=== PATIENT | female | born 1940 | race Caucasian/White ===

== ENCOUNTER → 2016-08-28 | Outpatient (CLI) | payer MEDICARE ==
[~2016-08-28] MED LIST: METF500T PO
[2016-08-28 12:02] LABS: AUTOMATED NEUTROPHIL # 4.8 TH/MM3 (1.8-7.7); BASOPHIL # 0.1 TH/MM3 (0-0.2); BASOPHIL % 1.1 % (0.0-2.0); EOSINOPHIL # 0.2 TH/MM3 (0-0.4); EOSINOPHIL % 2.8 % (0.0-4.0); HEMATOCRIT 42.7 % (35.0-46.0); HEMO FLAGS DIFF FINAL; LYMPH % 27.3 % (9.0-44.0); LYMPHOCYTE # 2.4 TH/MM3 (1.0-4.8); MEAN CELL VOLUME 96.5 FL (80.0-100.0); MEAN CORPUSCULAR HEMOGLOBIN 32.3 PG (27.0-34.0); MEAN CORPUSCULAR HGB CONC 33.4 % (32.0-36.0); MONO % 13.3 % (0.0-8.0); NEUT % 55.5 % (16.0-70.0); PLATELET COUNT 147 TH/MM3 (150-450); RED BLOOD COUNT 4.42 MIL/MM3 (4.00-5.30); RED CELL DISTRIBUTION WIDTH 16.1 % (11.6-17.2); WHITE BLOOD COUNT 8.6 TH/MM3 (4.0-11.0)
[2016-08-28 12:21] LABS: BACTERIA, URINE MANY /hpf; BLOOD, URINE TRACE (NEG); GLUCOSE,URINE NEG (NEG); GRANULAR CAST, URINE 2 /lpf; KETONE, URINE NEG (NEG); MUCUS URINE FEW /lpf (OCC); PH, URINE 6.5 (5.0-8.5); SQUAMOUS EPITHELIAL CELL URINE 3 /hpf (0-5); URINE COLOR YELLOW (YELLW/STRAW)
[2016-08-28 12:28] LABS: NITRITE,URINE POS (NEG)
[2016-08-28 12:35] LABS: BICARBONATE 25.2 MEQ/L (21.0-32.0)
[2016-08-28 12:36] LABS: POTASSIUM 5.6 MEQ/L (3.5-5.1)
== END ==
LOC: CPRE 10:34
PROVIDERS: ATTEND Obstetrics & Gynecology
DX: Z01.812 Encounter for preprocedural laboratory examination (principal); N92.0 Excessive and frequent menstruation with regular cycle
CPT/HCPCS: 36415; 80048; 81001; 85025

== ENCOUNTER 2016-09-05 05:47 | Observation (INO) | payer MEDICARE ==
[~2016-09-05] VITALS: Ht 162.6 cm; Wt 101.0 kg
[2016-09-05] MEDS ORDERED: METOPROLOL TARTRATE 25 MG TAB PO PRN (06:45)
[2016-09-05] MEDS ORDERED: POVIDONE IODINE 5% (ANTISEPSIS KIT) 4 APPLICATIONS EACH NARE PRN (06:45)
[2016-09-05] MEDS ORDERED: LACTATED RINGER'S 1000 ML IV PRN (06:45)
[2016-09-05] MEDS ORDERED: INSULIN HUMAN REGULAR 1,000 UNITS/10 ML VIAL SQ PRN (06:45)
[2016-09-05] MEDS ORDERED: APREPITANT 40 MG CAP PO SCH (06:45)
[2016-09-05] MEDS ORDERED: SODIUM CHLORID 0.9% 500 ML IV PRN (06:45)
[2016-09-05] MEDS ORDERED: ceFAZolin 2 GM PREMIX 50 ML IV SCH (06:45)
[2016-09-05] MEDS ORDERED: CHLORHEXIDINE GLUCONATE 2 % 1 PACK (2 CLOTHS) TOPICAL PRN (06:45)
[2016-09-05 07:00] VITALS: BP 163/73; PULSE 74; RESP 18; TEMP 99; O2SAT 98
[2016-09-05] MEDS ORDERED: BUPIVACAINE HCL PF 0.25% 30 ML VIAL INFIL ONE (08:26)
[2016-09-05] MEDS ORDERED: ACETAMINOPHEN 1000 MG/100 ML VIAL IV ONE (10:09)
[2016-09-05] MEDS ORDERED: oxyCODONE/ACETAMINOPHEN 5 MG/325 MG TAB PO PRN ×2 (11:00)
[2016-09-05] MEDS ORDERED: ONDANSETRON HCL 4 MG/2 ML VIAL IVP PRN (11:00)
[2016-09-05] MEDS ORDERED: KETOROLAC TROMETHAMINE 30 MG/ML (IVP) VIAL IVP PRN (11:00)
[2016-09-05] MEDS ORDERED: IBUPROFEN 600 MG TAB PO PRN (11:00)
[2016-09-05] MEDS ORDERED: SODIUM CHLORIDE 0.9% FLUSH 10 ML FLUSH IV FLUSH PRN (11:00)
[2016-09-05] MEDS ORDERED: DO NOT ADM ANY ANTICOAGULANT DRUGS PRN (11:17)
[2016-09-05] MEDS ORDERED: fentaNYL CITRATE 250 MCG/5 ML AMP ONE (11:22)
[2016-09-05] MEDS ORDERED: ePHEDrine/NS 25 MG/5 ML SYR IV ONE (12:00)
[2016-09-05] MEDS: LACTATED RINGER'S 1000 ML INJ 1,000 ML IV SCH (12:00)
[2016-09-05] MEDS ORDERED: NORMOSOL R INJ 1,000 ML IV ONE (12:00)
[2016-09-05] MEDS: DOCUSATE SODIUM 100 MG CAP PO SCH ×2 (12:00→23:57)
[2016-09-05] MEDS ORDERED: ONDANSETRON HCL 4 MG/2 ML VIAL IV PUSH ONE (12:00)
[2016-09-05] MEDS ORDERED: NEOSTIGMINE METHYLSULFATE 10 MG/10 ML VIAL IV PUSH ONE (12:00)
[2016-09-05] MEDS ORDERED: PROPOFOL 200 MG/20 ML AMP IV ONE (12:00)
[2016-09-05 13:45] VITALS: BP 160/81; PULSE 78; RESP 18; TEMP 95.1; O2SAT 96
[2016-09-05 14:30] VITALS: TEMP 95.2
[2016-09-05 16:00] VITALS: BP 156/81; PULSE 84; RESP 20; TEMP 96.8; O2SAT 97
[2016-09-05 20:00] VITALS: BP 154/67; PULSE 88; RESP 18; TEMP 97.8; O2SAT 96
[2016-09-06] VITALS: BP 132/60; PULSE 81; RESP 18; TEMP 97.6; O2SAT 95
[2016-09-06 04:00] VITALS: BP 119/58; PULSE 66; RESP 18; TEMP 97; O2SAT 95
[2016-09-06 08:00] VITALS: BP_SYST 131; BP_SYST 133; BP_DIAS 62; BP_DIAS 95; PULSE 105; PULSE 68; RESP 16; RESP 18; TEMP 96.3; TEMP 96.8; O2SAT 93; O2SAT 96
[2016-09-06 08:16] LABS: AUTOMATED NEUTROPHIL # 8.8 TH/MM3 (1.8-7.7); BASOPHIL % 0.4 % (0.0-2.0); EOSINOPHIL # 0.1 TH/MM3 (0-0.4); EOSINOPHIL % 0.9 % (0.0-4.0); HEMATOCRIT 34.8 % (35.0-46.0); LYMPH % 10.2 % (9.0-44.0); LYMPHOCYTE # 1.1 TH/MM3 (1.0-4.8); MEAN CELL VOLUME 97.2 FL (80.0-100.0); MEAN CORPUSCULAR HEMOGLOBIN 31.2 PG (27.0-34.0); MEAN CORPUSCULAR HGB CONC 32.1 % (32.0-36.0); MONO % 7.6 % (0.0-8.0); NEUT % 80.9 % (16.0-70.0); PLATELET COUNT 93 TH/MM3 (150-450); RED BLOOD COUNT 3.58 MIL/MM3 (4.00-5.30); RED CELL DISTRIBUTION WIDTH 15.5 % (11.6-17.2); WHITE BLOOD COUNT 10.9 TH/MM3 (4.0-11.0)
[2016-09-06 08:24] LABS: HEMO FLAGS AUTO DIFF
[2016-09-06 08:31] VITALS: O2SAT 97
[2016-09-06 08:52] LABS: BICARBONATE 26.2 MEQ/L (21.0-32.0); POTASSIUM 4.9 MEQ/L (3.5-5.1)
[2016-09-06] MEDS: SODIUM CHLORIDE 0.9% FLUSH 10 ML FLUSH IV FLUSH SCH ×2 (09:00→09:17)
[2016-09-06 09:09] LABS: BANDS 14 % (0-6); EOSINOPHILS 1 % (0-4); NEUTROPHIL # MANUAL DIFF 8.9 TH/MM3 (1.8-7.7); POLYS (SEG NEUTROPHILS) 68 % (16-70); WBC DIFF SAMPLE 100
[2016-09-06 09:10] LABS: PLATELET ESTIMATE SMEAR LOW (NORMAL); PLATELET MORPHOLOGY NORMAL (NORMAL); SCAN/DIFF FINAL DIFF MANUAL
[2016-09-06] MEDS: DOCUSATE SODIUM 100 MG CAP PO SCH (09:16)
--- NOTE | 2016-09-06 10:14 | HHI.PR ---
Subjective Remarks Doing well, pain is well controlled, eating well.BS 165-220, has not voided , st was not removed until 7:30 AM. Scant vaginal drainage Objective Vital Signs Vital Signs Date Time Temp Pulse Resp B/P Pulse Ox O2 Delivery O2 Flow Rate FiO2 09/06/16 08:31 97 Nasal Cannula 2.00 09/06/16 08:00 96.8 68 16 133/62 96 09/06/16 04:00 97.0 66 18 119/58 95 09/06/16 00:00 97.6 81 18 132/60 95 09/05/16 20:00 97.8 88 18 154/67 96 09/05/16 16:00 96.8 84 20 156/81 97 09/05/16 14:30 95.2 09/05/16 13:45 95.1 78 18 160/81 96 09/05/16 12:15 97.0 77 18 152/76 98 Nasal Cannula 3 09/05/16 12:00 66 18 146/68 97 Nasal Cannula 3 09/05/16 11:45 97.0 70 18 134/65 95 Nasal Cannula 3 09/05/16 11:30 96.0 66 12 126/63 96 Nasal Cannula 3 09/05/16 11:16 94.4 74 12 125/68 97 Nasal Cannula 3 I/O 09/05/16 09/05/16 09/05/16 09/06/16 09/06/16 09/06/16 07:00 15:00 23:00 07:00 15:00 23:00 Intake Total 2500 ml 720 ml Output Total 570 ml 650 ml 300 ml Balance 1930 ml 70 ml -300 ml Intake Oral 0 ml 720 ml IV Total 200 ml Other 2300 ml Output Urine Total 370 ml 650 ml 300 ml Estimated Blood Loss 200 ml # Voids 1 Result Diagram: 09/06/1617 09/06/1617 Objective Remarks Chest is clear, regular rate and rhythm. Abdomen is soft and non-distended. Incision is clean and dry. Ext no CCE. A/P Assessment and Plan Post Op Day 1 Doing well, AVSS; has no urge to void,will discharge once she voids. 1. Complex atypical endometrial hyperplasia ; pathology pendind 2. thrombocytopenia; plt ct 147-93, no bleeding ; repeat platelet count 3. renal function, Stable relative to pre-op kidney function,good uop. F/u as outpatient Home today pending platelet count, If platelets are stable will follow as outpt. Instructed on postop activities and precautions.. Adam Bishop MD Sep 06, 2016 10:14
[2016-09-06] MEDS ORDERED: metFORMIN HCL 500 MG TAB PO ONE (10:15)
--- NOTE | 2016-09-06 10:17 | HHI.DCPOC ---
Discharge Care Plan Your Health Problems Are: Fever, temperature>100.4 Nausea and/or vomiting Pelvic pain Shortness of breath Vaginal bleeding Report Symptoms to Your Doctor -Temperate above 100.5 degrees -Redness, of incision or excessive or foul smelling drainage -Unusual pain or calf pain -Increased vaginal bleeding -Painful or difficulty urinating -Feelings of extreme sadness or anxiety after 2 weeks Goals to Promote Your Health * To prevent worsening of your condition and complications * To maintain your health at the optimal level Directions to Meet Your Goals Take your medications as prescribed Follow your dietary instruction Follow activity as directed Ensure plenty of rest for recovery Drink fluids for hydration Keep your appointments as scheduled Take your immunizations and boosters as scheduled If your symptoms worsen call your PCP, if no PCP go to Urgent Care Center or Emergency Room Smoking is Dangerous to Your Health. Avoid second hand smoke Call the 24-hour crisis hotline for domestic abuse at Adam Bishop MD Sep 06, 2016 10:17
[2016-09-06 11:37] LABS: HEMATOCRIT 35.4 % (35.0-46.0); MEAN CELL VOLUME 96.2 FL (80.0-100.0); MEAN CORPUSCULAR HEMOGLOBIN 32.9 PG (27.0-34.0); MEAN CORPUSCULAR HGB CONC 34.2 % (32.0-36.0); PLATELET COUNT 138 TH/MM3 (150-450); RED BLOOD COUNT 3.68 MIL/MM3 (4.00-5.30); RED CELL DISTRIBUTION WIDTH 15.6 % (11.6-17.2); REVIEW FLAG FINAL; WHITE BLOOD COUNT 15.5 TH/MM3 (4.0-11.0)
[2016-09-06 12:00] VITALS: BP 119/56; PULSE 70; RESP 16; TEMP 96.3; O2SAT 97
[2016-09-06] MEDS: LACTATED RINGER'S 1000 ML INJ 1,000 ML IV SCH (12:00)
--- NOTE | 2016-09-07 11:19 | MP ---
cc: ADAM FELIX M.D., DAVID W. M.D. DATE OF SURGERY 09/05/2016 PREOPERATIVE DIAGNOSIS Patient with postmenopausal bleeding, diagnosed with atypical endometrial hyperplasia. PROCEDURE Total laparoscopic hysterectomy with robotic-assisted, right salpingo-oophorectomy and left salpingectomy. POSTOPERATIVE DIAGNOSIS Patient with postmenopausal bleeding, diagnosed with atypical endometrial hyperplasia. SURGEON MD Dario ANESTHESIA General by endotracheal intubation. ESTIMATED BLOOD LOSS 100 cc. DRAINS Harrington to gravity. OPERATIVE FINDINGS The patient had significant adhesions involving the rectosigmoid to the left adnexa and sidewall requiring dissection. The right fallopian tube and ovary were normal. The uterus was upper limits of normal for her age and was approximately 10 weeks in size but symmetrical, smooth. No peritoneal abnormality. Upper quadrants appeared normal. Cystourethroscopy demonstrated patency of both ureters, intact bladder and urethra. INDICATIONS FOR PROCEDURE History of postmenopausal bleeding. Endoscopic biopsy the endometrium revealed atypical complex endometrial hyperplasia. The options were discussed, concerns for occult malignancy or progression to malignancy were discussed and the patient elected for surgical excision with hysterectomy. Preoperatively the patient received Ancef 2 grams. PROCEDURE DESCRIPTION The patient was taken to the operating room, under general anesthesia had an endotracheal tube placed. She was carefully positioned in dorsal lithotomy position using Mario stirrups on lower extremities. Appropriate padding was placed where needed. Sequential were placed on the lower extremities for VTE prophylaxis. Time-out was conducted and agreed on by all present in the room. Harrington catheter was then inserted by sterile technique with a V-Care device using a small cup placed into the cervical os and secured. Retractors were removed, gloves were changed. The abdomen was examined. The patient is morbidly obese. The umbilical port was examined. 0.25% plain Marcaine was injected. A 12-mm camera port was placed directly into the perineal cavity without difficulty and then accessory ports were used. 8-mm trocars were placed in the right and left flank without complication. Evaluation of the pelvic anatomy was as described above. The How do you roll? patient cart was side-docked with #2 arm on the left, #1 arm on the right, monopolar scissor attached to #2 and a large fenestrated bipolar grasper attached to #1 arm. Good visualization was noted. There was no collisions with articulation. Examination of the anatomy through the surgeon cart identified the findings above. Dissection of the rectosigmoid away from the left round ligament and left adnexa was accomplished using a combination of hot and cold scissors allowing visualization of the left adnexa. Both ovaries were small and atretic in appearance. The left ovary was adherent to the sidewall and decision was to leave that in place due to the complexity of the case. The right side was unencumbered with adhesions or scar tissue. Dissection was initiated by dividing the round ligaments in hemostatic fashion and allowing dissection of the broad ligament anteriorly. The uterine artery and vein were skeletonized on the left, the uteroovarian pedicle in hemostatic fashion. The fallopian tube was excised and left intact with uterus for retrieval at the end of case. The contralateral side was then dissected again identifying the infundibulopelvic vessels, skeletonizing the vessels appropriately away from the ureter and then ligating them hemostatically. Dissection of the uterine artery and vein was accomplished in the same fashion with good hemostasis. Colpotomy incisions were made both anterior and posterior to allow for removal of the cervix intact with uterus which was brought through the vaginal opening by the diver assistant. Irrigation and cleaning of the pelvis revealed the vaginal cuff was intact. A #1 Stratafix suture was introduced transvaginally and then closure of the cuff was made in a linear fashion with good result. Integrity of the closure was tested with a sponge stick placed by the diver assistant and put on tension. No defects or breakdown of the cuff were noted. Suture needles were trimmed flush with the peritoneum and secured. At this point the da [place] patient cart was undocked. Straight laparoscopy was used. The suture needles were retrieved. Full count was made and correct. Irrigation of the pelvis was accomplished with copious normal saline. Evacuation with suction revealed no active bleeding or hematoma. The bladder and ureters were intact. Clear urine was draining through the Harrington throughout the entire case. Hemostatic material by Ethicon bradley Lackey was then introduced and placed over the vaginal cuff due to the small amount of oozing noted throughout the entire case. Closure of the umbilical port was accomplished using the large crossbow device with a #1 Vicryl suture with good closure integrity. The remaining pneumoperitoneum was then decompressed. The trocar incisions were dry and intact after removal of the trocars. The skin incisions were then closed with a subcuticular stitch of 4-0 Monocryl, Steri-Strips and Band-Aids. Prior to closure the bladder was back-filled with normal saline through the Harrington. The Harrington was removed and then the 5-mm hysteroscope her laparoscope was used to examine the bladder. Integrity of the bladder was noted. There is no abnormalities, no defect, no sutures, no perforation or tear. Both ureters were peristalsing normally, injecting clear urine into the bladder during the procedure and visualized during the cystoscopy. Removal of the straight laparoscope was uncomplicated and a new clean Harrington was inserted draining clear urine. Examination of the vaginal cuff was dry, no hematoma formation noted. At the completion of the case, final count was correct. The patient was stable. She was taken to the recovery room on room air. Adam Felix MD SJGrace/SSB /11:07 AM /10:59 AM
== END 2016-09-06 18:07 | disposition home or self-care (01) ==
LOC: HSDC 05:47 → HSDI 11:00 → HOCA 12:37
PROVIDERS: ADMIT Obstetrics & Gynecology; ATTEND Obstetrics & Gynecology
DX: N80.0 Endometriosis of uterus (principal); N85.01 Benign endometrial hyperplasia; N83.8 Other noninflammatory disorders of ovary, fallopian tube and broad ligament; D69.6 Thrombocytopenia, unspecified; E66.01 Morbid (severe) obesity due to excess calories; Z68.38 Body mass index [BMI] 38.0-38.9, adult; R06.02 Shortness of breath
CPT/HCPCS: 00840; 58571; 80048; 82948; 85007; 85027; 86850; 86900; 86901; 88307; 94150; G0378; J0131; J0690; J1885; J2405; J2710; J3010; J7120; J8501